=== PATIENT | female | born 1965 | race Hispanic/Latino ===

== ENCOUNTER → 2022-02-13 | Outpatient (CLI) | payer BC | END | disposition home or self-care (01) | LOC: RAH 09:35 | PROVIDERS: ATTEND Nurse Practitioner Family | DX: Z12.31 Encounter for screening mammogram for malignant neoplasm of breast (principal) | CPT/HCPCS: 77067 ==

== ENCOUNTER → 2023-07-16 | Outpatient (CLI) | payer BC | END | disposition home or self-care (01) | LOC: RAH 11:29 | PROVIDERS: ATTEND Nurse Practitioner Family | DX: Z12.31 Encounter for screening mammogram for malignant neoplasm of breast (principal) | CPT/HCPCS: 77067 ==